=== PATIENT | female | born 1950 | race Caucasian/White ===

== ENCOUNTER → 2016-06-09 | Outpatient (CLI) | payer MEDICARE, BC | LOC: MC.RAD 09:40 | DX: Z12.31 Encounter for screening mammogram for malignant neoplasm of breast (principal) ==

== ENCOUNTER → 2017-06-14 | Outpatient (CLI) | payer MEDICARE, BC | LOC: MC.RAD 09:40 | DX: Z12.31 Encounter for screening mammogram for malignant neoplasm of breast (principal) ==

== ENCOUNTER → 2018-07-05 | Outpatient (CLI) | payer MEDICARE, BC | LOC: MC.RAD 09:45 | DX: Z12.31 Encounter for screening mammogram for malignant neoplasm of breast (principal); I10 Essential (primary) hypertension ==

== ENCOUNTER 2019-08-20 10:16 | Day surgery (SDC) | payer MEDICARE, BC ==
[2019-08-20] VITALS (10 sets, daily range): BP systolic 101–137; BP diastolic 56–68; PULSE 49–72; TEMP 97.1–97.8
[~2019-08-20] VITALS: Ht 168.9 cm; Wt 69.6 kg
[2019-08-20] MEDS ORDERED: MEVACOR 20M20 MG/TAB PO (11:07)
[2019-08-20] MEDS ORDERED: SYNTHROID0.05 MG/TA PO (11:07)
[2019-08-20] MEDS ORDERED: COZAAR100 MG PO (11:07)
[2019-08-20] MEDS ORDERED: AMITRIPTYLINE H10 M1 PO (11:08)
[2019-08-20] MEDS ORDERED: MASON NATURAL600 MG PO (11:08)
[2019-08-20] MEDS ORDERED: VITAMIN FLUSH-F1 CAP PO (11:09)
--- NOTE | 2019-08-20 11:30 | NUR ---
TO AT 1025- CALL LIGHT IN REACH ROXANNE AT BEDSIDE.
--- NOTE | 2019-08-20 15:30 | NUR ---
Patient up from OR. Drowsy but arouses to voice. Wasserman to dependent draiange with clear yellow urine in bag. Lap sites x 4 with edges well approximated. Deneis pain atht is time. Post op VSS. Post op fluids infusing. Denies further needs at this time.
--- NOTE | 2019-08-20 18:38 | NUR ---
Patient has done well since up from OR. Drowsy but arouses to voice. Tolerating clear liquids, mainly ice chips. Fluids continue infusing per orders. Wasserman maintained to dependent drainage with clear yellow urine in bag. Continues to deny pain. VSS. Deneis further needs at this time. Will report off to car shifter.
--- NOTE | 2019-08-20 21:45 | NUR ---
Pt. sitting up in bed at this time. Pt. is A&OX3, assessment complete. IV to lt. wrist patent, IV fluids infusing per orders. Abd. lap sites x5 CDI. Pt. able to lift and hold legs off bed at this time. Pt. assisted to the chair. Pt. denies further needs, call light within reach.
[2019-08-21 03:54] VITALS: BP 99/50; PULSE 55; TEMP 97.8
[2019-08-21 08:02] VITALS: BP 120/59; PULSE 51; TEMP 97.6
--- NOTE | 2019-08-21 09:30 | NUR ---
Patient alert and oriented, answers questions appropriately. See assessment. Abdomen soft, non tender, non disteded. Bowel sounds active x4 quads. +Flatus. Abdominal lap sites with edges well approximated, no redness or drainage noted. ERAS protocol reviewed with patient. No c/o at this time.
--- NOTE | 2019-08-21 10:29 | NUR ---
ARIEL met with the patient to complete initial intake. The patient lives in [place] with her , Ron. The patient denies DME use and is independent with ADLs. The patient's PCP is Dr. Latham and patient receives medications from [facility] with no difficulties. The patient does not have advanced directives in the EMR but states they are complete and designate her and her two sons. The patient plans to return home at discharge. There are no additional needs at this time.
--- NOTE | 2019-08-21 11:29 | NUR ---
Dr Rodriguez here to see patient.
[2019-08-21 11:31] VITALS: BP 121/61; PULSE 55; TEMP 97.6
--- NOTE | 2019-08-21 14:19 | NUR ---
Discharge instructions reveiwed with patient, verbalized understanding. Discharged via wheelchair to auto/home with spouse at 1330.
== END 2019-08-21 13:30 | disposition home or self-care (01) ==
LOC: SDCO 10:16 → SURG 15:37 → SDCO 08-21 13:30
DX: N99.3 Prolapse of vaginal vault after hysterectomy (principal); E78.00 Pure hypercholesterolemia, unspecified; I10 Essential (primary) hypertension; E03.9 Hypothyroidism, unspecified; E78.5 Hyperlipidemia, unspecified; N30.10 Interstitial cystitis (chronic) without hematuria; Z98.51 Tubal ligation status; Z82.0 Family history of epilepsy and other diseases of the nervous system
CPT/HCPCS: OP; A4314; C1781; J0690; J1100; J1170; J1885; J2405; J2704; J3010; J7120

== ENCOUNTER → 2020-02-10 | Outpatient (CLI) | payer MEDICARE, BC ==
[~2020-02-10] MED LIST: AMITRIPTYLINE H10 M1 PO; COZAAR100 MG PO; MASON NATURAL600 MG PO; MEVACOR 20M20 MG/TAB PO; SYNTHROID0.05 MG/TA PO; VITAMIN FLUSH-F1 CAP PO
== END ==
LOC: MC.RAD 13:45
DX: Z12.31 Encounter for screening mammogram for malignant neoplasm of breast (principal)

== ENCOUNTER → 2021-05-05 | Outpatient (CLI) | payer MEDICARE, BC | LOC: MC.RAD 13:00 | DX: Z12.31 Encounter for screening mammogram for malignant neoplasm of breast (principal) ==

== ENCOUNTER → 2022-07-27 | Outpatient (CLI) | payer MEDICARE, BC | LOC: MC.RAD 07-20 10:00 | DX: Z12.31 Encounter for screening mammogram for malignant neoplasm of breast (principal) ==

== ENCOUNTER → 2023-08-08 | Outpatient (CLI) | payer MEDICARE, BC | LOC: MC.RAD 10:00 | DX: Z12.31 Encounter for screening mammogram for malignant neoplasm of breast (principal) ==